=== PATIENT | female | born 1950 | race Caucasian/White ===

== ENCOUNTER 2019-08-27 01:51 | Inpatient (IN) ==
[2019-08-21 11:08] LABS: BASO# 0.06 X1000 (0.0-0.2); BASO% 1.1 % (0.0-0.8); EOS# 0.18 X1000 (0.0-0.7); EOS% 3.3 % (0.0-10.0); HEMATOCRIT 42.6 % (37.0-47.0); HEMOGLOBIN 13.7 g/dL (12.0-16.0); LYMPH# 1.92 X1000 (1.2-3.4); LYMPH% 34.9 % (20.5-51.1); MCH 28.3 PG (27-31); MCHC 32.2 g/dL (33-37); MONO# 0.77 X1000 (0.11-0.59); MPV 10.2 FL (7.4-10.4); NEUT# 2.57 X1000 (1.4-6.5); NEUT% 46.7 % (42.2-75.2); PLT 417 X1000 (130-400); RBC 4.84 XMIL (4.2-5.4); RDW 13.5 % (11.5-14.5)
[2019-08-21 11:24] LABS: EOS 6 % (1-10); LYMPHS 26 % (21-51); MONO 16 % (1-9); SEGS 38 % (42-75)
[2019-08-21 11:31] LABS: CALCIUM 9.1 mg/dL (8.8-10.2); CREATININE 1.2 mg/dL (0.5-0.9); POTASSIUM 4.8 mmol/L (3.5-5.1)
--- NOTE | 2019-08-21 11:33 | EKG Report ---
Test Performed on : 08/21/2019 10:48:17 AM Test Reason : pat Blood Pressure : / mmHG Vent. Rate : 075 BPM Atrial Rate : 075 BPM P-R Int : 142 ms QRS Dur : 068 ms QT Int : 374 ms P-R-T Axes : 051 069 039 degrees QTc Int : 417 ms Normal sinus rhythm. Normal ECG When compared with ECG of 22-OCT-2013 15:02, No significant change was found Unconfirmed Result
--- NOTE | 2019-08-26 19:13 | HISTORY AND PHYSICAL ---
HISTORY: The patient is a 69-year-old female who we have been following for the last 6 years, with advanced-stage pelvic organ prolapse. We have been managing her with pessaries, initially using a ring and then changing to a Gellhorn. She has had worsening of her prolapse through the years. There has been no improvement using pessaries, and she is now wishing to proceed with surgical intervention. The risks and benefits of the obliterative procedures, colpectomy with midurethral sling were discussed at length with the patient. We have discussed this on multiple occasions in the office. She is understanding and is wishing to proceed with surgical intervention. PAST MEDICAL HISTORY: Positive for hypercholesterolemia, chronic constipation and the vaginal prolapse. PAST SURGICAL HISTORY: Positive for abdominal hysterectomy, bilateral salpingo-oophorectomy, benign breast biopsy, appendectomy and colonoscopy. OBSTETRICAL HISTORY: She is noted to be a para 2-0-0-2. ALLERGIES: None. CURRENT MEDICATIONS: Premarin cream, Lipitor 20, TriCor 145, Benicar 5 and p.r.n. medications. SOCIAL HISTORY: Negative for EtOH, drug usage or tobacco usage. FAMILY HISTORY: Positive for colon cancer in her father and breast cancer in her sister. PHYSICAL EXAMINATION: GENERAL: BMI is 21. HEENT: Normocephalic, atraumatic. PERRLA. EOMI. NECK: No thyromegaly. CARDIOVASCULAR: Regular rate and rhythm without murmur, gallop or rub. PULMONARY: Clear to auscultation and percussion. ABDOMEN: Soft. GENITOURINARY: POPQ stage 3 prolapse with the leading edge at +4. Her total vaginal length is 10. NEUROLOGIC: Afocal. EXTREMITIES: Without clubbing, cyanosis or edema. ASSESSMENT AND PLAN: Patient with history of prior hysterectomy, who has been managed the last 5 or 6 years with pessary, who is now wishing to proceed with surgical intervention. The risks and benefits of colpectomy were explained at length. The risks and benefits of midurethral sling were discussed at length. She understands and is wishing to proceed to surgical intervention. cc: Andrea Baker MD
[2019-08-27] MEDS ORDERED: LR 1,000 ML ONE (05:56)
[2019-08-27] MEDS ORDERED: KEFZOL 1 GM/D5W 2 GM/100 ML IVPB ONE (05:56)
[2019-08-27] MEDS ORDERED: MARCAINE 0.25% PF/EPI 1:200,000 ONE ×2 (06:29→07:50)
[2019-08-27] MEDS ORDERED: FENTANYL ONE (06:30)
[2019-08-27] MEDS ORDERED: SODIUM CHLORIDE 0.9% ONE (06:30)
[2019-08-27] MEDS ORDERED: METROGEL-VAGINAL 0.75% GEL ONE (06:30)
[2019-08-27] MEDS ORDERED: D10W 500 ML ONE (06:30)
[2019-08-27] MEDS ORDERED: DIPRIVAN 1% ONE (06:31)
[2019-08-27] MEDS ORDERED: QUELICIN (DOSE) ONE (06:35)
[2019-08-27] MEDS ORDERED: XYLOCAINE-MPF 2% ONE (06:35)
[2019-08-27] MEDS ORDERED: ROBINUL ONE (06:35)
--- NOTE | 2019-08-27 06:40 | H&P REVIEW ---
H&P Update H&P Review: H&P was reviewed and patient was examined, No change has occurred in the patient's condition
[2019-08-27] MEDS ORDERED: ZOFRAN ONE (06:56)
[2019-08-27] MEDS ORDERED: TORADOL ONE (06:56)
[2019-08-27] MEDS ORDERED: DECADRON ONE (06:56)
[2019-08-27] MEDS ORDERED: EPHEDRINE ONE (07:30)
[2019-08-27] MEDS ORDERED: LASIX ONE (07:31)
[2019-08-27 08:26] LABS: URINE SOURCE CATH
[2019-08-27 08:28] LABS: BILIRUBIN URINE NEGATIVE (NEGATIVE); BLOOD URINE TRACE (NEGATIVE); COLOR STRAW; GLUCOSE URINE NEGATIVE (NEGATIVE); KETONE URINE NEGATIVE (NEGATIVE); LEUKOCYTES URINE NEGATIVE (NEGATIVE); NITRITE URINE NEGATIVE (NEGATIVE); PROTEIN URINE NEGATIVE (NEGATIVE); SP GRAVITY URINE 1.009; TURBIDITY URINE CLEAR (CLEAR); UROBILINOGEN URINE NORMAL (NORMAL)
[2019-08-27 08:30] LABS: UR EPITHELIAL CELLS <10 /HPF (<10); URINE BACTERIA NEGATIVE /HPF; URINE RBC <10 /HPF (<10); URINE WBC <10 /HPF (<10)
[2019-08-27] MEDS ORDERED: NORCO-5 PO PRN (09:06)
[2019-08-27] MEDS ORDERED: ZOFRAN ODT PO PRN (09:06)
[2019-08-27] MEDS: PERIDEX MT SCH ×2 (10:19→21:56)
[2019-08-27] MEDS: COLACE PO SCH ×2 (10:19→21:57)
[2019-08-27] MEDS: LR 1,000 ML IV SCH ×2 (10:20→16:20)
[2019-08-27] MEDS: TORADOL IV SCH ×2 (16:20→21:56)
--- NOTE | 2019-08-27 18:42 | PROGRESS NOTE ---
DATE: 08/27/2019 SUBJECTIVE: Patient is alert and oriented x3. She is sitting in the bed with her 2 sisters. OBJECTIVE: Afebrile. Vital signs stable. Urine output is clear. ASSESSMENT AND PLAN: Routine postoperative care. We will remove the Woody in the morning and undergo voiding trial. I will plan on discharge after completion of her voiding trial. We did discuss the operative procedure with the patient and family, and she had no other questions. cc: Andrea Baker MD
--- NOTE | 2019-08-27 19:44 | OPERATIVE NOTE ---
PROCEDURE DATE: 08/27/2019 PREOPERATIVE DIAGNOSIS: Symptomatic pelvic organ prolapse. POSTOPERATIVE DIAGNOSIS: Symptomatic pelvic organ prolapse. PROCEDURE: 1. Colpectomy. 2. Perineorrhaphy. 3. Mid urethral sling with Obtryx. SURGEON: Andrea Baker MD. ANESTHESIA: General. ESTIMATED BLOOD LOSS: 20 mL. HISTORY: The patient is a 69-year-old female who we have been following for approximately 4 years with pessary management due to her advanced stage prolapse. She has a job that require significant amount of lifting and is now wishing to proceed with surgical intervention. OPERATIVE FINDINGS: POP-Q stage IV prolapse. PROCEDURE IN DETAIL: The patient was taken to the operating room and placed in the supine position. After adequate general anesthesia obtained she is placed in candy cane stirrups. The vagina and perineum prepped and draped in the usual fashion. At this time, Allis clamps x2 were utilized to grasp the vaginal apex of the right and left sulcus and then at this time, we used a marking pen to demarcate the vagina into 4 large quadrants starting at the urethrovesical neck and extending down to the perineal body. At this time, we began anteriorly by grasping the 2 distal apex Allis and at this time, we then began with doing a hydrodissection with 0.25% Marcaine with epinephrine diluted 50% with normal saline. We dissected out the 2 anterior quadrants of vaginal mucosa and then went to the posterior compartment and did the exact same thing with an initial hydrodissection and then excision of the vaginal mucosa of the posterior 2 quadrants. This essentially removed all the vagina, so we then began doing a pursestring suture at the apex of the bladder and rectal region. We saved this and continued to imbricate in a serial fashion, continued pursestring sutures until we had complete resolution of her prolapse. As we got to the most distal portion of the vagina, we then used a 0 Vicryl ligature to close the remaining anterior vaginal mucosa at the urethrovesical neck to the perineal body. 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 Therefore, decision was made to proceed with a perineocele repair. We grasped the perineum with Allis clamps at approximately 3 o'clock and 9 o'clock position, injected another 20 mL of the same local anesthetic. We made a sarwat-shaped incision over this area and removed this tissue. At this time, we then used a [id number] suture with 0 Vicryl ligature to plicate the transverse perinea and superficial perinea regions and this closed this area off. We then closed the remaining incision as if it was an episiotomy with 2.0 Vicryl ligature. At this time, we then turned our attention towards placement of the sling. The urethra was grasped proximally and distally with Allis clamps. Another 810 mL of the same local anesthetic was injected for hydrodissection in this area. We then made a sagittal incision and dissected up towards the ischial pubic ramus on each side. After doing this, we identified the ischial pubic ramus with the soda fountain operator's finger, made a stab incision initially on the left- hand side with attention placed upon the adductor longus. A stab incision was made and then the halo device was introduced through this incision, through the obturator canal to the soda fountain operator's finger, which allowed for attachment of the mesh. We then retracted the mesh back through the skin. This was performed on the contralateral side in a similar fashion. After completion of this, we then drained all fluid from the bladder and filled the bladder again with D10. After proximally 250 mL of filling, we were able to identify both ureteral orifices which were effluxing urine. There was no evidence of any abnormalities within the bladder whatsoever and the urethra was found to be within normal limits. Cystoscope was removed. Pearl clamp was placed the mid urethral position. The tape was brought out the Pearl clamp. Blue tag was excised from the sheaths and had been easily removed. We closed the sagittal incision with a running 2.0 Vicryl ligature. Excessive mesh was trimmed on the skin. Woody catheter was placed. Sponge count, instrument count, and needle counts correct x3. PACKS OR DRAINS: Woody. DISPOSITION: The patient was awakened and taken to the recovery room with vital signs stable. cc: MD SHYLA Rodriguez
[2019-08-27] MEDS ORDERED: LIPITOR PO SCH (21:00)
[2019-08-27] MEDS ORDERED: BENICAR PO SCH (21:00)
[2019-08-27] MEDS ORDERED: TRICOR PO SCH (21:00)
[2019-08-28] MEDS: LR 1,000 ML IV SCH (00:25)
[2019-08-28] MEDS: TORADOL IV SCH (04:36)
[2019-08-28 07:52] VITALS: BP 134/64
[2019-08-28] MEDS: PERIDEX MT SCH (08:01)
[2019-08-28] MEDS: COLACE PO SCH (08:02)
--- NOTE | 2019-08-29 07:01 | DISCHARGE SUMMARY ---
ADMISSION DATE: 08/27/2019 DISCHARGE DATE: 08/28/2019 PRINCIPAL DIAGNOSIS: Pelvic organ prolapse. PROCEDURES: 1. Colpectomy. 2. Mid urethral sling with Obtryx. SURGEON: Andrea Baker MD HISTORY: The patient is a 69-year-old female who we have been managing with pessary for many years now, and decided to proceed with surgical intervention for her advanced staged prolapse. HOSPITAL COURSE: The patient underwent the above-stated procedure. Blood loss at that time was approximately 20 mL. Her postoperative course has been uncomplicated. She is currently undergoing voiding trial, and will be discharged home with instructions for followup in 3 weeks. DISCHARGE MEDICATIONS: 1. [place]o. 2. Colace. DISCHARGE INSTRUCTIONS: She was instructed on regular diet and decreased activity. cc: Andrea Baker MD
== END 2019-08-28 09:53 | disposition home or self-care (01) | DRG 748 ==
LOC: SURHOLD 01:51 → 4N 07:36
PROVIDERS: ADMIT Obstetrics & Gynecology; ATTEND Obstetrics & Gynecology
PROC: GY.CYST (2019-08-27 06:55)